=== PATIENT | female | born 1980 | race Caucasian/White ===

== ENCOUNTER 2019-12-27 02:26 | Emergency (ER) | payer SELFPAY ==
--- NOTE | ~2019-12-27 | CT_ITS ---
EXAMINATION: CT abdomen pelvis wo con DATE: 12/27/2019 03:12 INDICATION: Left flank pain TECHNIQUE: Computed tomography (CT) of the abdomen and pelvis was performed without intravenous contr ast. Automated exposure control and iterative reconstruction technique were employed. The dose-length product was 201.12 mGy-cm. COMPARISON: None FINDINGS: Lung bases are clear. Heart size is normal. No pericardial or pleural effusion. Liver, gallbladder, s pleen, pancreas and bilateral adrenal glands are normal. 2 mm stone in an upper pole calyx of the lef t kidney and 1 mm stones at upper and lower pole calyces of the right kidney. No stones seen along th e normal ureters with no hydronephrosis. Bladder is normal. A few small phleboliths in the pelvis. T- shaped IUD in expected position within the anteverted uterus. Bilateral adnexa are normal. Bowels inc luding the appendix are normal. No free intraperitoneal gas or fluid. No pathologically enlarged abdo lara or pelvic lymphadenopathy. Bones are unremarkable. IMPRESSION: 1. Bilateral nonobstructing nephrolithiasis. No ureteral stones hydronephrosis or other acute intra-a bdominal/pelvic process. 2. IUD in expected position. Reviewed, dictated and finalized at location A. IMPRESSION: 1. Bilateral nonobstructing nephrolithiasis. No ureteral stones hydronephrosis or other acute intra-abdominal/pelvic process. 2. IUD in expected position.
[2019-12-27 02:34] VITALS: BP 123/85; PULSE 90; RESP 20; TEMP 36.8; O2SAT 100
--- NOTE | 2019-12-27 02:37 | ED.ABDPAIN ---
HPI - Abdominal Pain General Chief Complaint: Abdominal Pain Stated Complaint: L flank pain Time Seen by Provider: 12/27/19 02:30 Source: patient and RN notes reviewed Mode of arrival: ambulatory Limitations: no limitations History of Present Illness HPI narrative: A 39 y/o female presents to the ED with severe, sharp, shooting, lt flank pain beginning earlier tonight. She states that she has been having some mild lt flank pain for awhile but that tonight it became acutely more severe, so she decided to come to the ED. She reports associated dysuria and that the pain radiates into her LLQ. She notes that the pain was sharp and shooting but that it is now more dull and throbbing. She also notes that the pain is aggravated when she moves or tries to urinate. She denies any N/V/D, fevers, or chills. MD elicited complaint: flank pain (lt) Pertinent past history: none Onset (ago): hour(s) (became more severe tonight) Location: L flank Severity: severe Quality: stabbing (was), sharp (was), dull (now) and other (throbbing - now) Radiation: LLQ Exacerbating factors: movement and other (trying to urinate) Relieving factors: nothing Associated symptoms: dysuria Related Data Allergies Allergy/AdvReac Type Severity Reaction Status Date / Time No Known Allergies Allergy Verified 12/27/19 02:40 Review of Systems Review of Systems: All systems reviewed & are unremarkable except as noted in HPI and below Constitutional: Constitutional: Denies chills and Denies fever(s) Gastrointestinal: Gastrointestinal: Denies diarrhea, Denies nausea and Denies vomiting Genitourinary: Genitourinary: Reports dysuria and Reports flank pain (lt that radiates into her LLQ) [facility] Past Medical History Medical History Anxiety IBS (irritable bowel syndrome) IUD (intrauterine device) in place Surgical History Surgical History (Updated 12/27/19 @ 02:39 by Glen Proctor) Previous section Social History Social History (Updated 12/27/19 @ 02:54 by Glen Proctor) Smoking packs per day: 0.5 Smoking cigarettes per day: 10.0 Smoking status: Current every day smoker Tobacco type: cigarettes Exam Const: General: healthy appearing, no acute distress and alert Nutritional Appearance: well nourished Orientation/consciousness: patient oriented x3 HENMT: Head: normal to inspection Resp: Effort & Inspection: normal respiratory effort Auscultation: clear to auscultation bilaterally Cardio: Rate: regular rate Rhythm: regular rhythm GI: GI Palp: Yes Soft to palpation and No Tenderness to palpation present (GI) Skin: General skin exam: normal color Neuro: General: patient oriented x3, moves all extremities and no focal motor deficits Speech: normal speech Extrem: General: normal to inspection Course Vital Signs Vital signs: Vital Signs Temperature 36.8 C 12/27/19 02:34 Pulse Rate 90 12/27/19 02:34 Respiratory Rate 20 12/27/19 02:34 Blood Pressure 123/85 12/27/19 02:34 Pulse Oximetry 100 12/27/19 02:34 Temperature 36.8 C 12/27/19 02:34 Pulse Rate 90 12/27/19 02:34 Respiratory Rate 20 12/27/19 02:34 Blood Pressure 123/85 12/27/19 02:34 Pulse Oximetry 100 12/27/19 02:34 MDM - Abdominal Pain MDM Narrative Medical decision making narrative: Presentation consistent with kidney stone. She has some blood in urine and non-specific calcifications in pelvis. I feel that she most likely has or already passed a stone. She is declining any further pain at this time. Medical Records Attestation: I reviewed the patient's medical records. Lab Data Attestation: I reviewed the patient's lab results. Result diagrams: 12/27/19 02:58 12/27/19 02:58 Labs: Lab Results 12/27/19 12/27/19 12/27/19 Range/Units 02:58 02:58 02:58 WBC 5.3 (4.5-10.0) K/mm3 RBC 4.61 (4.2-5.4) M/mm3 Hgb 14.7 (12.0-15.0) g/dL Hct 42.3 (37.0-47.0) % MCV 91.8 (80-100) fl M
[2019-12-27] MEDS: SODIUM CHLORIDE 0.9% IV 1,000 ML 999 ML IV CONT (02:57)
--- NOTE | 2019-12-27 03:05 | PC.NURSE ---
Patient taken to radiology.
[2019-12-27 03:19] LABS: Basophils Absolute Auto 0.1 K/mm3 (0.0-0.1); Basophils Percent Auto 0.9 % (0.2-1.2); Eosinophils Absolute Auto 0.1 K/mm3 (0-0.3); Eosinophils Percent Auto 1.7 % (0-4.4); Hematocrit 42.3 % (37.0-47.0); Hemoglobin 14.7 g/dL (12.0-15.0); Immature Granulocyte Absolute 0.01 K/mm3 (0.00-0.031); Immature Granulocyte Percent A 0.2 % (0-0.5); Lymphocytes Absolute Auto 2.26 K/mm3 (0.9-3.2); Lymphocytes Percent Auto 42.9 % (18.3-44.2); Mean Corpuscular HGB Conc 34.8 g/dl (32-36); Mean Corpuscular Hemoglobin 31.9 pg (26-34); Mean Corpuscular Volume 91.8 fl (80-100); Mean Platelet Volume 9.7 fl (7.4-10.4); Monocytes Absolute Auto 0.4 K/mm3 (0.1-0.6); Neutrophils Absolute Auto 2.4 K/mm3 (1.3-6.7); Neutrophils Percent Auto 46.3 % (45.5-73.1); Platelet Count Result 290 k/mm3 (150-375); Red Blood Count 4.61 M/mm3 (4.2-5.4); Red Cell Distribution Width 11.5 % (11.5-14.5); White Blood Count 5.3 K/mm3 (4.5-10.0)
[2019-12-27 03:23] LABS: Add Urine Microscopic? YES; Appearance Urine Clear (Clear); Bilirubin Urine Negative (Negative); Blood Urine 1+ (Negative); Color Urine Colorless (Yellow); Glucose Urine UA Negative (Negative); Ketones Urine Negative (Negative); Leukocyte Esterase Ur Negative LEU/UL (Negative); Nitrate Urine Negative (Negative); Protein Urine Negative (Negative); RBC Urine 0-2 /hpf (0-2); Urobilinogen Urine Negative mg/dL (<2.0); WBC Urine 0-3 /hpf
[2019-12-27 03:24] LABS: Alanine Aminotransferase 22 U/L (4-35); Albumin Level 4.8 g/dL (3.5-5.1); Alkaline Phosphatase 51 U/L (38-126); Aspartate Amino Transferase 21 U/L (14-36); Bilirubin,Total 0.4 mg/dL (0.2-1.3); Blood Urea Nitrogen 7 mg/dL (7-17); Calcium 9.6 mg/dL (8.4-10.2); Carbon Dioxide 27 mmol/L (22-30); Chloride 104 mmol/L (98-107); Estimated Glomerular Filt Rate > 60; Glucose 91 mg/dL (65-105); Potassium 3.4 mmol/L (3.4-5.0); Sodium 141 mmol/L (137-145)
[2019-12-27 03:31] LABS: Specific Grav Ur 1.003 (1.001-1.035)
[2019-12-27 04:52] VITALS: BP 122/76; PULSE 86; RESP 18; O2SAT 100
== END 2019-12-27 04:54 | disposition home or self-care (01) ==
PROVIDERS: Emergency Provider Emergency Medicine; PCP Family Medicine
DX: N20.0 Calculus of kidney (principal); K58.9 Irritable bowel syndrome, unspecified; Z97.5 Presence of (intrauterine) contraceptive device; F17.210 Nicotine dependence, cigarettes, uncomplicated
CPT/HCPCS: 36415; 74176; 80053; 81001; 85025; 96360; 99284; J7030

== ENCOUNTER → 2020-11-22 12:06 | Outpatient (CLI) | payer SELFPAY ==
[2020-11-23 14:42] LABS: SARS-CoV-2 RNA PCR Negative
== END ==
PROVIDERS: PCP Family Medicine; Visit Provider Family Medicine
DX: Z20.822 Contact with and (suspected) exposure to COVID-19 (principal)
CPT/HCPCS: C9803; U0003; U0005

== ENCOUNTER → 2022-03-31 10:50 | Outpatient (CLI) | payer BC, SELFPAY ==
--- NOTE | ~2022-03-31 | CT_ITS ---
EXAMINATION: CT IAC/mastoids BI wo con DATE: 03/31/2022 11:06 INDICATION: Vertigo TECHNIQUE: High resolution temporal bone computed tomography (CT) of the bilateral internal auditory canals and mastoids was performed without intravenous contrast. Additional sagittal and coronal recon structions were performed. Automated exposure control and iterative reconstruction technique were emp loyed. The dose-length product was 253.47 mGy-cm. COMPARISON: None FINDINGS: No effusions or abnormal fluid or soft tissue densities at the lateral mastoid air cells or middle ea r cavities. Bilateral ossicular chains appear normal. Prussak's space and the scutum appear normal, t he latter with no erosions. The course of the facial nerve appears unremarkable. The cochlea and laby rinth are normal. The collateral internal auditory canals, cochlear and vestibular aqueducts appear n ormal. No abnormal masses identified at the cerebral pontine angles on either of the left or right. B ilateral temporomandibular joints are normal alignment with mild osteoarthritis on the right. The orb its and paranasal sinuses are normal. Mild osteoarthritis at the atlantoaxial and bilateral atlantooc cipital articulations. IMPRESSION: 1. 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 Otherwise unremarkable CT of the temporal bones and internal au ditory canals. Reviewed, dictated and finalized at location A. IMPRESSION: 1. 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 Otherwise unremarka ble CT of the temporal bones and internal auditory canals.
== END ==
PROVIDERS: PCP Family Medicine; Visit Provider Otolaryngology
DX: R42 Dizziness and giddiness (principal); M19.09 Primary osteoarthritis, other specified site
CPT/HCPCS: 70480

== ENCOUNTER 2022-04-25 15:01 | Emergency (ER) | payer BC, SELFPAY ==
[2022-04-25] VITALS (12 sets, daily range): BP systolic 107–122; BP diastolic 70–84; PULSE 62–77; RESP 15–20; TEMP 36.5; O2SAT 97–100
--- NOTE | ~2022-04-25 | XR_ITS ---
EXAMINATION: XR chest 2V Exam Date/Time: 04/25/2022 15:35 CDT HISTORY: sob Comparison: 07/01/2018. RESULT: Lines, tubes, and devices: None. Lungs and pleura: Clear. Cardiomediastinal silhouette: Stable. Other: No acute osseous or upper abdominal finding. IMPRESSION: No acute cardiopulmonary process. Reviewed, dictated and finalized at location K.
--- NOTE | 2022-04-25 15:03 | ECG_ITS ---
Measurements Intervals [place] Rate: 72 P: 61 AR: 104 QRS: -12 QRSD: 93 T: 32 QT: 411 QTc: 450 Interpretive Statements SINUS RHYTHM WITH SINUS ARRHYTHMIA WITH SHORT AR INTERVAL ST ELEVATION IN ANTERIOR LEADS- PROBABLY EARLY REPOLARIZATION ABNORMALITY BASELINE ARTIFACT- I, II, III, AVR, AVL, V6 BORDERLINE ECG Electronically Signed On 04-25-2022 16:21:08 CDT by Amador Blackburn D.O.
--- NOTE | 2022-04-25 16:27 | ED.GENADULT ---
HPI - General Adult General Chief complaint: Shortness of Breath/Dyspnea Stated complaint: dizziness, sob Time Seen by Provider: 04/25/22 16:02 History of Present Illness HPI narrative: 41-year-old female presented the emergency department for evaluation after having a possible anxiety attack. Patient states she does have history anxiety with panic attacks. Patient states while she was getting ready for work today she had onset of an uneasy feeling with associated rapid heart rate and shortness of breath. Patient did not feel that she had any triggers that were making her feel anxious. Patient denied any increased caffeine intake today. Patient did take a portion of her Xanax due to her concern this may be anxiety. Symptoms started at 2:00 and patient states by 4:00 she is beginning to feel improved. On initial evaluation patient states that she feels significantly improved. Patient denies any sensation of anxiety, rapid heart rate, or chest pain. Related Data Allergies Allergy/AdvReac Type Severity Reaction Status Date / Time No Known Allergies Allergy Verified 12/27/19 02:40 Review of Systems Review of Systems: CONSTITUTIONAL: Denies fever, chills, or sweats. EYES: Denies visual changes, redness, or discharge. ENT: Denies rhinorrhea, congestion, sore throat, or otalgia. CARDIOVASCULAR: See HPI RESPIRATORY: See HPI GASTROINTESTINAL: Denies abdominal pain, nausea, vomiting, or diarrhea. GENITOURINARY: Denies dysuria or hematuria. SKIN: Denies rash or itching. MUSCULOSKELETAL: Denies back pain, joint pain, or myalgia. NEUROLOGIC: Denies headache, numbness, or weakness. Psychiatric: Anxiety PMFSH Past Medical History Medical History Anxiety IBS (irritable bowel syndrome) IUD (intrauterine device) in place Surgical History Surgical History (Updated 12/27/19 @ 02:39 by Glen Proctor) Previous section Social History Social History (Updated 12/27/19 @ 02:54 by Glen Proctor) Smoking packs per day: 0.5 Smoking cigarettes per day: 10.0 Smoking status: Current every day smoker Tobacco type: cigarettes Exam Narrative: APPEARANCE: Well appearing, no pain, no distress, well-nourished. HEAD: normocephalic, atraumatic. EYES: PERRLA/EOMI, conjunctivae clear. NOSE: Normal no drainage NECK: Supple. No adenopathy, no masses. RESPIRATORY: Airway patent, respirations nonlabored. Clear to auscultation bilaterally, no rales, rhonchi, wheezing. CARDIOVASCULAR: Regular rate and rhythm without murmurs rubs or gallops. ABDOMINAL: Soft, nontender, nondistended, normal bowel sounds MUSCULOSKELETAL: Moves all extremities. Strength/ROM intact, No edema, No calf tenderness. NEURO: Alert. Cranial nerves II through XII intact. Grossly intact SKIN: Warm, dry. Normal Color PSYCHIATRIC: Normal affect/mood. Course Course Emergency Course: X-ray shows no acute cardiopulmonary normality. EKG shows normal sinus rhythm. Electrolytes are within normal limits. Patient was updated on the results of her work-up. Patient does feel improved at this time. Vital Signs Vital signs: Vital Signs Temperature 97.7 F 04/25/22 15:04 Pulse Rate 77 04/25/22 15:04 Respiratory Rate 18 04/25/22 15:04 Blood Pressure 120/70 04/25/22 15:04 Pulse Oximetry 100 04/25/22 15:04 Oxygen Delivery Room Air 04/25/22 15:04 Temperature 97.7 F 04/25/22 15:04 Pulse Rate 62 04/25/22 17:29 Respiratory Rate 18 04/25/22 17:29 Blood Pressure 107/76 04/25/22 17:29 Pulse Oximetry 100 04/25/22 17:29 Oxygen Delivery Room Air 04/25/22 15:04 Medical Decision Making Vital Signs Vital Signs: Vital Signs Temperature 97.7 F 04/25/22 15:04 Pulse Rate 77 04/25/22 15:04 Respiratory Rate 18 04/25/22 15:04 Blood Pressure 120/70 04/25/22 15:04 Pulse Oximetry 100 04/25/22 15:04 Oxygen Delivery Room Air 04/25/22 15:04 Temperature 97.7 F 04/25/22 15:04 Pulse Rate 62 04/25/22 17:29 Respiratory
[2022-04-25 16:34] LABS: Basophils Absolute Auto 0.1 K/mm3 (0.0-0.1); Basophils Percent Auto 1.4 % (0.2-1.2); Eosinophils Absolute Auto 0.1 K/mm3 (0-0.3); Eosinophils Percent Auto 2.2 % (0-4.4); Hematocrit 39.7 % (37.0-47.0); Hemoglobin 13.7 g/dL (12.0-15.0); Immature Granulocyte Absolute 0.01 K/mm3 (0.00-0.031); Immature Granulocyte Percent A 0.2 % (0-0.5); Lymphocytes Absolute Auto 1.14 K/mm3 (0.9-3.2); Lymphocytes Percent Auto 27.5 % (18.3-44.2); Mean Corpuscular HGB Conc 34.5 g/dl (32-36); Mean Corpuscular Hemoglobin 32.8 pg (26-34); Mean Platelet Volume 9.7 fl (7.4-10.4); Monocytes Absolute Auto 0.4 K/mm3 (0.1-0.6); Monocytes Percent Auto 10.1 % (2.6-8.5); Neutrophils Absolute Auto 2.4 K/mm3 (1.3-6.7); Neutrophils Percent Auto 58.6 % (45.5-73.1); Platelet Count Result 290 k/mm3 (150-375); Red Blood Count 4.18 M/mm3 (4.2-5.4); Red Cell Distribution Width 12.4 % (11.5-14.5); White Blood Count 4.2 K/mm3 (4.5-10.0)
[2022-04-25 16:38] LABS: Alanine Aminotransferase 27 U/L (6-35); Albumin Level 4.2 g/dL (3.5-5.1); Alkaline Phosphatase 46 U/L (38-126); Anion Gap 10 mmol/L (8-16); Aspartate Amino Transferase 27 U/L (14-36); Bilirubin,Total 0.6 mg/dL (0.2-1.3); Blood Urea Nitrogen 9 mg/dL (7-17); Calcium 8.8 mg/dL (8.4-10.2); Carbon Dioxide 26 mmol/L (22-30); Chloride 104 mmol/L (98-107); Estimated CRCL calculation 84 ml/min; Estimated Glomerular Filt Rate > 60; Glucose 75 mg/dL (65-110); Potassium 4.1 mmol/L (3.4-5.0); Sodium 140 mmol/L (137-145)
== END 2022-04-25 17:41 | disposition home or self-care (01) ==
PROVIDERS: Emergency Provider Emergency Medicine; PCP Family Medicine
DX: R06.02 Shortness of breath (principal); F41.9 Anxiety disorder, unspecified; K58.9 Irritable bowel syndrome, unspecified; Z97.5 Presence of (intrauterine) contraceptive device; F17.210 Nicotine dependence, cigarettes, uncomplicated; R94.31 Abnormal electrocardiogram [ECG] [EKG]
CPT/HCPCS: 36415; 71046; 80053; 85025; 93005; 99284

== ENCOUNTER 2023-04-15 09:54 | Emergency (ER) | payer BC, SELFPAY ==
--- NOTE | ~2023-04-15 | CT_ITS ---
EXAMINATION: CT abdomen pelvis w con DATE: 04/15/2023 12:12 INDICATION: Right sided abdominal pain, nausea. Right lower back pain. TECHNIQUE: Computed tomography (CT) of the abdomen and pelvis was performed with 100 CC Omnipaque 350 intravenous contrast. Automated exposure control and iterative reconstruction technique were employe d. Exam dose: 229.27 mGy-cm total exam DLP. COMPARISON: 12/27/2019 CT abdomen pelvis FINDINGS: Minimal bilateral lower lobe dependent atelectasis. Normal heart size. No pericardial or pl eural effusion. A 1.6 cm posterior right hepatic hypoattenuating mass with suggestion of some peripheral puddling of contrast material, likely a benign hemangioma. The liver, spleen, pancreas, and adrenal glands and ki dneys are otherwise unremarkable. The gallbladder is present. No pericholecystic fluid or fat strandi ng. No bile duct or pancreatic duct dilatation. Normal morphology of the adrenal glands. No renal mass lesion or urinary tract calculus or hydroureteronephrosis. The urinary bladder is unrem arkable. An IUD is noted in expected position within the uterus. The adnexal areas are unremarkable. Normal caliber of the abdominal aorta. No intraperitoneal or retroperitoneal or pelvic mass lesion or adenopathy or ascites. Normal appendix. No bowel obstruction, bowel wall thickening, pneumatosis or intraperitoneal free air . Very small fat-containing umbilical hernia. Included skeletal structures are unremarkable. IMPRESSION: Probable 1.6 cm hepatic hemangioma IUD within uterus Reviewed, dictated and finalized at [facility]. Reviewed, dictated and finalized at location A.
[2023-04-15 10:19] VITALS: BP 108/61; PULSE 78; RESP 17; TEMP 36.7; O2SAT 100
[2023-04-15] MEDS: MORPHINE SULFATE (*CRX) 2 MG/ML INJ IV PUSH (10:40)
[2023-04-15] MEDS: ONDANSETRON INJ 4 MG/2 ML VIAL IV PUSH (10:40)
[2023-04-15] MEDS: SODIUM CHLORIDE 0.9% IV 1,000 ML 999 ML IV CONT (10:40)
[2023-04-15 10:45] LABS: Basophils Absolute Auto 0.1 K/mm3 (0.0-0.1); Basophils Percent Auto 1.5 % (0.2-1.2); Eosinophils Absolute Auto 0.3 K/mm3 (0-0.3); Hematocrit 39.5 % (37.0-47.0); Immature Granulocyte Absolute 0.01 K/mm3 (0.00-0.031); Immature Granulocyte Percent A 0.2 % (0-0.5); Lymphocytes Absolute Auto 1.73 K/mm3 (0.9-3.2); Lymphocytes Percent Auto 41.9 % (18.3-44.2); Mean Corpuscular HGB Conc 32.9 g/dl (32-36); Mean Corpuscular Hemoglobin 32.3 pg (26-34); Mean Corpuscular Volume 98.3 fl (80-100); Mean Platelet Volume 9.7 fl (7.4-10.4); Monocytes Absolute Auto 0.5 K/mm3 (0.1-0.6); Monocytes Percent Auto 11.4 % (2.6-8.5); Neutrophils Absolute Auto 1.6 K/mm3 (1.3-6.7); Platelet Count Result 270 k/mm3 (150-375); Red Blood Count 4.02 M/mm3 (4.2-5.4); Red Cell Distribution Width 12.5 % (11.5-14.5); White Blood Count 4.1 K/mm3 (4.5-10.0)
[2023-04-15 10:48] VITALS: BP 123/89; PULSE 69; RESP 16; O2SAT 100
[2023-04-15 10:58] LABS: Appearance Urine Cloudy (Clear); Bacteria Urine 1+ /hpf; Bilirubin Urine Negative (Negative); Blood Urine 2+ (Negative); Color Urine Yellow (Yellow); Glucose Urine UA Negative (Negative); Ketones Urine Trace mg/dL (Negative); Leukocyte Esterase Ur Negative LEU/UL (Negative); Nitrate Urine Negative (Negative); Non Pathogenic Casts 0-2; Protein Urine Negative (Negative); RBC Urine 0-2 /hpf (0-2); Specific Grav Ur 1.033 (1.001-1.035); Squamous Epithelial Cell Urine Many /hpf (Few); WBC Urine 0-5 /hpf; pH Urine 5.5 (5.0-9.0)
[2023-04-15 10:59] LABS: Alanine Aminotransferase 18 U/L (6-35); Albumin Level 3.8 g/dL (3.5-5.1); Alkaline Phosphatase 55 U/L (38-126); Anion Gap 5 mmol/L (8-16); Aspartate Amino Transferase 21 U/L (14-36); Bilirubin,Total 0.4 mg/dL (0.2-1.3); Blood Urea Nitrogen 15 mg/dL (7-17); Calcium 8.5 mg/dL (8.4-10.2); Carbon Dioxide 29 mmol/L (22-30); Chloride 103 mmol/L (98-107); Estimated CRCL calculation 68 ml/min; Estimated Glomerular Filt Rate > 60; Glucose 87 mg/dL (65-110); Lipase 73 U/L (23-300); Potassium 3.9 mmol/L (3.4-5.0); Sodium 137 mmol/L (137-145)
[2023-04-15 11:01] LABS: Add Urine Microscopic? YES
--- NOTE | 2023-04-15 13:36 | ED.GENADULT ---
HPI - General Adult General Chief complaint: Abdominal Pain Stated complaint: Flank Pain Time Seen by Provider: 04/15/23 10:08 History of Present Illness HPI narrative: Patient is a 42-year-old female who presents ER with right-sided flank pain abdominal pain. Sudden onset today. She does report that she has been having some discomfort with urination and has been taking [id number] medications to fix urinary tract infection. No fevers or chills or sweats. She is without diarrhea. No blood in urine. Related Data Allergies Allergy/AdvReac Type Severity Reaction Status Date / Time No Known Allergies Allergy Verified 04/15/23 10:38 Review of Systems Review of Systems: All systems reviewed & are unremarkable except as noted in HPI and below Constitutional: Constitutional: Denies chills and Denies fever(s) ENT: Denies nasal congestion and Denies sore throat Cardiovascular: Cardiovascular: Denies chest pain, Denies rapid heart rate and Denies radiating jaw, neck or arm pain Respiratory: Respiratory: Denies cough and Denies dyspnea Gastrointestinal: Gastrointestinal: Reports abdominal pain, Denies nausea and Denies vomiting Genitourinary: Genitourinary: Denies hematuria, Reports nocturia, Reports dysuria and Reports flank pain Musculoskeletal: Musculoskeletal: Reports back pain, Denies arthralgias and Denies joint swelling PMFSH Past Medical History Medical History Anxiety IBS (irritable bowel syndrome) IUD (intrauterine device) in place Surgical History Surgical History (Updated 12/27/19 @ 02:39 by Glen Proctor) Previous section Social History Social History (Updated 12/27/19 @ 02:54 by Glen Proctor) Smoking packs per day: 0.5 Smoking cigarettes per day: 10.0 Smoking status: Current every day smoker Tobacco type: cigarettes Exam Narrative: GENERAL: Well-appearing, well-nourished, and in no acute distress. HEAD: Normocephalic, atraumatic. EYES: PERRL and EOMI. ENT: Mucous membranes moist. CHEST: Clear to auscultation. No respiratory distress. HEART: Regular rate and rhythm. Normal peripheral pulses. ABDOMEN: Soft, nontender, nondistended, no CVA tenderness. EXTREMITIES: Normal range of motion. No edema. SKIN: Warm, dry, no rash. NEURO: Alert and oriented x3. PSYCH: Normal mood and affect. Course Course Emergency Course: Patient resting comfortably. Informed of results. Discussed hemangioma liver. Also discussed urine with trace bacteria that may be contaminant. However given patient's symptoms we will treat her for UTI. We will treat back pain with anti-inflammatories. Discharge home. Vital Signs Vital signs: Vital Signs Temperature 98.1 F 04/15/23 10:19 Pulse Rate 78 04/15/23 10:19 Respiratory Rate 17 04/15/23 10:19 Blood Pressure 108/61 04/15/23 10:19 Pulse Oximetry 100 04/15/23 10:19 Oxygen Delivery Room Air 04/15/23 10:19 Temperature 98.1 F 04/15/23 10:19 Pulse Rate 69 04/15/23 10:48 Respiratory Rate 16 04/15/23 10:48 Blood Pressure 123/89 04/15/23 10:48 Pulse Oximetry 100 04/15/23 10:48 Oxygen Delivery Room Air 04/15/23 10:19 Medical Decision Making Vital Signs Vital Signs: Vital Signs Temperature 98.1 F 04/15/23 10:19 Pulse Rate 78 04/15/23 10:19 Respiratory Rate 17 04/15/23 10:19 Blood Pressure 108/61 04/15/23 10:19 Pulse Oximetry 100 04/15/23 10:19 Oxygen Delivery Room Air 04/15/23 10:19 Temperature 98.1 F 04/15/23 10:19 Pulse Rate 69 04/15/23 10:48 Respiratory Rate 16 04/15/23 10:48 Blood Pressure 123/89 04/15/23 10:48 Pulse Oximetry 100 04/15/23 10:48 Oxygen Delivery Room Air 04/15/23 10:19 Lab Data 04/15/23 10:39 04/15/23 10:38 Labs: Lab Results 04/15/23 04/15/23 Range/Units 10:38 10:39 WBC 4.1 L (4.5-10.0) K/mm3 RBC 4.02 L (4.2-5.4) M/mm3 Hgb 13.0 (12.0-15.0) g/dL Hct 39.5 (37.0-47.
[2023-04-15 13:50] VITALS: BP 121/74; PULSE 65; RESP 21; O2SAT 100
== END 2023-04-15 13:50 | disposition home or self-care (01) ==
PROVIDERS: Emergency Provider Emergency Medicine; PCP Family Medicine
DX: N39.0 Urinary tract infection, site not specified (principal); K58.9 Irritable bowel syndrome, unspecified; Z97.5 Presence of (intrauterine) contraceptive device; F17.210 Nicotine dependence, cigarettes, uncomplicated
CPT/HCPCS: 36415; 74177; 80053; 81001; 81025; 83690; 85025; 96361; 96374; 96375; 99284; J2270; J2405; J7030; Q9967

== ENCOUNTER 2025-09-04 07:14 | Outpatient (CLI) | payer BC, SELFPAY ==
--- NOTE | ~2025-09-04 | US_ITS ---
Examination: US abdomen complete Clinical History: other abn findings of blood chemistry . Comparison: 04/15/2023 Technique: Complete abdominal sonography Findings: Liver: Enlarged. Echogenic. No intrahepatic biliary ductal dilatation. Normal hepatopedal flow main portal vein. 19 mm hyperechoic focus right lobe consistent with hemangioma. Small ill-defined hyperechoic focus segment 4, possibly additional hemangioma; attention on any future scans. Common duct: Normal caliber, 4 mm. Gallbladder: No stones. No wall thickening. No pericholecystic fluid. Spleen: Unremarkable. Pancreas: Unremarkable. Kidneys: Unremarkable. Aorta: No aneurysmal dilatation. Retrohepatic IVC: Unremarkable. IMPRESSION: 1. Hepatomegaly, with steatosis and/or hepatocellular disease. 2. Small probable hepatic hemangioma. Additional unchanged hemangioma. Recommend repeat ultrasound in 6-12 months. Reviewed, dictated and finalized at location R. TUTOR IMPRESSION: 1. Hepatomegaly, with steatosis and/or hepatocellular disease. 2. Small probable hepatic hemangioma. Additional unchanged hemangioma. Recomme nd repeat ultrasound in 6-12 months.
== END 2025-09-04 07:15 | disposition home or self-care (01) ==
PROVIDERS: PCP Family Medicine; Visit Provider Family Medicine
DX: R79.89 Other specified abnormal findings of blood chemistry (principal); K76.0 Fatty (change of) liver, not elsewhere classified
CPT/HCPCS: 76700